=== PATIENT | male | born 1980 | race Caucasian/White ===

== ENCOUNTER 2017-02-23 16:22 | Emergency (ER) | payer SELFPAY ==
[2017-02-23] MEDS ORDERED: TORADOL 30 MG VIAL ONE (16:26)
[2017-02-23] MEDS ORDERED: ZOFRAN INJ 4 MG VIAL ONE (16:26)
[2017-02-23] MEDS ORDERED: TORADOL 30 MG VIAL IVP ONE (16:33)
[2017-02-23] MEDS ORDERED: ZOFRAN INJ 4 MG VIAL IVP ONE (16:33)
[2017-02-23 16:39] VITALS: BP 162/83; BMI 24.6
[2017-02-23] MEDS ORDERED: NORFLEX INJ IM ONE (16:40)
[2017-02-23] MEDS ORDERED: NORFLEX INJ ONE (16:40)
[2017-02-23] MEDS ORDERED: NS 1000 ML 1,000 ML ONE (17:15)
--- NOTE | 2017-02-23 17:28 | DR.GENAD ---
HPI - PCP Primary Care Physician: AMY - HPI Comment HPI Comment: Pt arrives via ambulance with right flank which radiates into his right scrotum. He has a h/o kidney stones and reports gross hematuria ~ 2 days ago. He denies fever and chills. - Complaint/Symptoms Chief Complaint Doctors Comments: "R side pain" Chief Complaint:: PT C/O PAIN TO HIS RIGHT FLANK PAIN THAT RADIATES TO HIS RIGHT GROIN.. - Nurses notes reviewed Nurses Notes Review: Yes - Source History Provided: Patient - Mode of Arrival Mode of Arrival: EMS - Timing Onset of Chief Complaint: 02/23/17 Came on: Suddenly - Duration Duration: Since Onset PMH - PMH Past Medical History: Yes Past Medical History Comment: RENAL STONES Past Surgical History: No - Family History History of Family Medical Conditions: Yes Family Medical History: Diabetes Mellitus, Cancer, Coronary Artery Disease, Hypertension - Social History Does patient currently use any type of tobacco product: Yes Have you used tobacco products in the last 12 months: Yes Type of Tobacco Use: Cigarettes Does any household member use tobacco: No Alcohol Use: None Do you use any recreational Drugs:: No Lives With: Family Lives Where: Home - infectious screening In the last 2 months have you had wt loss of >10#?: NO Have you had fever, night sweats or hemotysis?: No Have you traveled outside the country in the last 6 months?: No Isolation: Standard ROS - Review of Systems Constitutional: No Symptoms Reported Respiratoy: No Symptoms Reported Cardiovascular: No Symptoms Reported Gastrointestinal/Abdominal: No Symptoms Reported Genitourinary: No Symptoms Reported Neurological: No Symptoms Reported Musculoskeletal: See HPI, Back Pain, Right, Back Integumentary: No Symptoms Reported Hematologic/Lymphatic: No Symptoms Reported Endocrine: No Symptoms Reported Psychiatric: No Symptoms Reported All Other Systems: Reviewed and Negative PE - Vital Signs Vitals: Pulse Rate 92 Respiratory Rate 22 Blood Pressure 162/83 O2 Sat by Pulse Oximetry 96 - General Limitations: No Limitations General Appearance: Alert, Anxious, In Distress - Head Head Exam: Normal Inspection - Eyes Eye exam: Normal Appearance - Neck Neck Exam: Normal Inspection - Chest Chest Inspection: Normal Inspection, Symmetric Chest Wall Rise - Respiratory Respiratory Exam: Normal Lung Sounds Bilat Respiratory Exam: Bilateral Clear to Auscultation - Cardiovascular Cardiovascular Exam: Regular Rate, Normal Rhythm, Normal Heart Sounds - Abdominal Exam Abdominal Exam: Normal Inspection, Normal Bowel Sounds, Soft - Back Back Exam: (R) CVA Tenderness - Neurologic Neurological Exam: Alert, Oriented X3, CN II-XII Intact - Psychiatric Psychiatric Exam: Agitated, Anxious - Skin Skin Exam: Warm, Dry, Intact, Normal Color MDM - Differential Diagnosis Differential Diagnosis: kidney stones, UTi, epididymitis Course - Reevaluation 1st: Improved (4/10 pain after toradol and norflex) ROR - Labs Reviewed Laboratory Results Reviewed?: Yes Laboratory: Specimen Type Clean catch urine 02/23/17 18:09 Urine Color Yellow (YELLOW) 02/23/17 18:09 Urine Appearance Slightly hazy (CLEAR) 02/23/17 18:09 Urine pH 6.0 (5.0 - 8.0) 02/23/17 18:09 Ur Specific [place] 1.015 (1.000-1.030) 02/23/17 18:09 Urine Protein 1+ (NEGATIVE) 02/23/17 18:09 Urine Glucose (UA) Negative (NEGATIVE) 02/23/17 18:09 Urine Ketones Negative (NEGATIVE) 02/23/17 18:09 Urine Occult Blood 5+ (NEGATIVE) 02/23/17 18:09 Urine Nitrite Negative (NEGATIVE) 02/23/17 18:09 Urine Bilirubin Negative (NEGATIVE) 02/23/17 18:09 Urine Urobilinogen Normal (NORMAL) 02/23/17 18:09 Ur Leukocyte Esterase Negative (NEGATIVE) 02/23/17 18:09 Urine RBC 40-50 /HPF (NEGATIVE) 02/23/17 18:09 Urine WBC 0-3 /HPF (NEGATIVE) 02/23/17 18:09 Ur Squamous Epith Cells Rare /HPF (NEGATIVE) 02/23/17 18:09 Urine Bacteria Negative /HPF (NEGATIVE) 02/23/17 18:09 Ur Culture Indicated? No/not indicated 02/23/17 18:09 - Diagnosis Discharge Problem: Flank pain, acute, Nephrolithiasis - Discharge Plan Condition: Stable - Follow ups/Referrals Follow ups/Referrals: NFD,None [Primary Care Provider] - 3 days - Instructions
[2017-02-23] MEDS ORDERED: NS 1000 ML 1,000 ML IV ONE (17:29)
--- NOTE | 2017-02-23 17:53 | RAD ---
HISTORY: Possible kidney stone. Right-sided back pain all the way down back to testicles. Study: Abdomen two views Comparison: CT abdomen and pelvis dated January 28, 2012 Findings: Evaluation of the abdomen demonstrates a normal bowel gas pattern. No pathological soft tissue mass is observed. Multiple calcifications project over the right kidney. There is at least 1 calcificati on identified along the expected course of the proximal right ureter. The bony structures are gross ly intact. IMPRESSION: 1. Calcifications projecting over the right kidney in over the expected course of the proximal righ t ureter. 2. A CT examination of the abdomen and pelvis, renal stone search is recommended further evaluation . Reported By:
[2017-02-23 18:19] LABS: BILIRUBIN,URINE NEGATIVE (NEGATIVE); BLOOD/HEMOGLOBIN,URINE 5+ (NEGATIVE); GLUCOSE, URINE NEGATIVE (NEGATIVE); KETONES,URINE NEGATIVE (NEGATIVE); LEUKOCYTE ESTERASE ,URINE NEGATIVE (NEGATIVE); NITRITES,URINE NEGATIVE (NEGATIVE); PROTEIN,URINE 1+ (NEGATIVE); UROBILINOGEN,URINE NORMAL (NORMAL)
[2017-02-23] MEDS ORDERED: MORPHINE SULFATE INJ 4 MG IVP ONE (18:19)
[2017-02-23] MEDS ORDERED: PHENERGAN INJ 25 MG IVP ONE (18:20)
[2017-02-23] MEDS ORDERED: MORPHINE SULFATE INJ 2 MG ONE (18:21)
[2017-02-23] MEDS ORDERED: PHENERGAN INJ 25 MG ONE (18:21)
[2017-02-23 18:35] LABS: APPEARANCE,URINE SLIGHTLY HAZY (CLEAR); BACTERIA,URINE NEGATIVE /HPF (NEGATIVE); COLOR,URINE YELLOW (YELLOW); RBC,URINE 40-50 /HPF (NEGATIVE); SQUAMOUS EPITHELIAL CELL,UR RARE /HPF (NEGATIVE)
--- NOTE | 2017-02-23 19:47 | CT ---
CT ABDOMEN AND PELVIS WITHOUT CONTRAST CLINICAL HISTORY: 36-year-old male with right-sided back pain and calcifications overlying the renal shadow on KUB. COMPARISON: CT abdomen and pelvis January 28, 2012. TECHNIQUE: Multiple contiguous computed tomographic axial images of the abdomen and pelvis were obta ined without the use of oral or intravenous contrast. Images were reformatted in the coronal and sag ittal planes. FINDINGS: The lung bases demonstrate no evidence of focal air-space opacification, pleural effusion, pneumotho rax, or suspicious pulmonary nodules. The imaged inferior mediastinum and heart are normal in appea berenice without evidence of pericardial effusion. The liver, gallbladder, pancreas, and spleen are within normal limits for noncontrast imaging. The adrenal glands are normal for study without contrast. Innumerable right renal pelvic stones that are nonobstructing measuring up to 5 mm with a proximal r ight partially obstructing renal stone measuring 3 mm with mild right-sided hydroureteronephrosis wi thout perinephric fluid or significant stranding. No left-sided nephroureterolithiasis or hydroureteronephrosis. Ureters run a no otherwise normal cou rse to a well distended urinary bladder without intracystic stone. The prostate, seminal vesicles, and external genitalia are within normal limits. The appendix is normal in appearance. The bowel is without obstruction or inflammation and there is no free fluid or free air within the peritoneal cavity. There are no pathologically enlarged lymph nodes in the abdomen or pelvis. The arteriovascular structures are within normal limits for a study without contrast. Soft tissues are normal. The osseous structures are intact without fracture or malalignment. IMPRESSION: 1. Multiple right renal pelvic stones that are nonobstructing measuring up to 5 mm with a proximal p artially obstructing 3 mm right ureteral stone and subsequent mild right hydroureteronephrosis. 2. No left-sided nephroureterolithiasis or hydroureteronephrosis. Reported By:
== END 2017-02-23 20:50 | disposition left against medical advice (07) ==
LOC: ER 16:25
DX: N20.0 Calculus of kidney (principal); R10.84 Generalized abdominal pain
CPT/HCPCS: 74000; 74176; 81001; 96365; 96372; 96374; 96375; 99282; 99283; J1885; J2270; J2360; J2405; J2550

== ENCOUNTER 2017-11-24 19:22 | Emergency (ER) | payer SELFPAY ==
[2017-11-24 19:34] VITALS: BP 159/107; BMI 24.3
[2017-11-24] MEDS ORDERED: MORPHINE SULFATE INJ 2 MG INJ IVP ONE (19:54)
--- NOTE | 2017-11-24 19:59 | DR.EXTPAIN ---
HPI - Time seen Time seen: 19:50 - PCP Primary Care Physician: NFD - Complaint/Symptoms Chief Complaint Doctor Comments: He was bitten by his neighbors dog. this was an unprovoked attack. Bites were to his right 3rd + 2nd fingers, right calf and medical left thigh. Chief Complaint:: WAS AT HOME AND DOG BIT HIM - Nurses notes reviewed Nurses Notes Review: Yes - Source History Provided: Patient - Mode of arrival Mode of Arrival: EMS - Timing Onset of Chief Complaint: 11/24/17 PMH - PMH Past Medical History: No Past Surgical History: No - Family History History of Family Medical Conditions: Yes Family Medical History: Diabetes Mellitus, Cancer, Coronary Artery Disease, Hypertension - Social History Does patient currently use any type of tobacco product: Yes Have you used tobacco products in the last 12 months: Yes Type of Tobacco Use: Cigarettes Does any household member use tobacco: Yes Alcohol Use: Occasionally Do you use any recreational Drugs:: Yes (THC) Lives With: Family Lives Where: Home - infectious screening In the last 2 months have you had wt loss of >10#?: NO Have you had fever, night sweats or hemotysis?: No Have you traveled outside the country in the last 6 months?: No Isolation: Standard ROS - Review of Systems Constitutional: No Symptoms Reported Eyes: No Symptoms Reported ENTM: No Symptoms Reported Respiratoy: No Symptoms Reported Cardiovascular: No Symptoms Reported Gastrointestinal/Abdominal: No Symptoms Reported Genitourinary: No Symptoms Reported Neurological: No Symptoms Reported Musculoskeletal: Leg (rt., pain), Other (lt. thigh pain and rt. fingers x 2) Integumentary: Other (bites dimas as described in HPI) Hematologic/Lymphatic: No Symptoms Reported Endocrine: No Symptoms Reported Psychiatric: No Symptoms Reported PE - Vital Signs Vitals: Temperature 98.0 F Pulse Rate 109 Respiratory Rate 22 Blood Pressure 159/107 O2 Sat by Pulse Oximetry 98 - General Limitations: No Limitations General Appearance: Alert - Head Head Exam: Normal Inspection, Atraumatic - Eyes Eye exam: Normal Appearance - ENT ENT Exam: Normal Exam - Neck Neck Exam: Normal Inspection - Chest Chest Inspection: Normal Inspection - Respiratory Respiratory Exam: Normal Lung Sounds Bilat - Cardiovascular Cardiovascular Exam: Regular Rate, Normal Rhythm, Normal Heart Sounds, +S1, +S2 - Abdominal Exam Abdominal Exam: Normal Inspection, Normal Bowel Sounds, Soft - Upper Extremities Shoulder Exam: Normal Inspection Arm Exam: Normal Inspection Elbow Exam: Normal Inspection Forearm Exam: Normal Inspection Hand Exam: Other (puncture wound(s) on rt. 2nd and 3rd digits.) Neuromotor Exam: Normal Exam Neurosensory Exam: Normal Exam - Lower Extremities Hip/Pelvis Exam: Normal Inspection Upper Leg Exam: Other (medial lt. thigh with a U shaped row of puncture wounds) Knee Exam: Normal Inspection, Full ROM Lower Leg Exam: Other (puncture wounds on posterior right calf) Ankle Exam: Normal Inspection Foot/Toe Exam: Normal Inspection Neurovascular/Tendon Exam: Normal Capillary Refill - Back Back Exam: Normal Inspection - Neurological Neurological Exam: Alert, Oriented X3, CN II-XII Intact - Psychiatric Psychiatric Exam: Normal Affect, Normal Mood - Skin Skin Exam: Other (as described in exts.) - Diagnosis Discharge Problem: Bite from dog - Discharge Plan Disposition: 01 HOME, SELF-CARE Condition: Stable - Follow ups/Referrals Follow ups/Referrals: NFD,None [Primary Care Provider] - 3 days - Instructions
[2017-11-24] MEDS ORDERED: AUGMENTIN 875 MG/125 MG TAB PO SCH (20:00)
[2017-11-24] MEDS ORDERED: MORPHINE SULFATE INJ 2 MG INJ ONE (20:12)
[2017-11-24] MEDS ORDERED: AUGMENTIN 500 MG/125 MG TAB PO ONE ×2 (20:28→20:53)
== END 2017-11-24 21:15 | disposition home or self-care (01) ==
LOC: ER 19:26
DX: S61.451A Open bite of right hand, initial encounter (principal); S81.852A Open bite, left lower leg, initial encounter; S71.152A Open bite, left thigh, initial encounter; W54.0XXA Bitten by dog, initial encounter; Y92.009 Unspecified place in unspecified non-institutional (private) residence as the place of occurrence of the external cause
CPT/HCPCS: 99281; 99282; J2270

== ENCOUNTER 2017-11-28 16:05 | Emergency (ER) | payer OTHER ==
[2017-11-28 16:21] VITALS: BP 168/98; BMI 26.6
[2017-11-28] MEDS ORDERED: ADACEL TDaP IM ONE ×2 (16:22→16:24)
[2017-11-28] MEDS ORDERED: XYLOCAINE 1 % (PLAIN) ONE (16:49)
--- NOTE | 2017-11-28 18:20 | DR.LACERAT ---
HPI - Time Seen Time seen: 16:25 - Primary Care Physician Primary Care Physician: NFD - Complaints Chief Complaint Doctors Comments: CUT LEFT THIGH WITH RAZOR BLADE IN SENIOR LIVING. PATIENT DID THIS INTENSIONALLY. NO HISTORY OF SUICIDE ATTEMPT. NO HISTORY OF MENTAL ILLNESS IN PATIENT. FAMILY HISTORY OF PARANIO DEPRESSION IN FATHER. Chief Complaint:: PT C/O LACERATION TO LT THIGH. PT STATES HE HAS BEEN IN RETIREMENT SINCE MONDAY AND HE HAS BEEN GOING CRAZY HE HAS BEEN IN THE HOLE. PT STATES HIS FATHER IS A PARANOID SCHIZOPHRENIC AND HE IS SCARED HE IS TURNING INTO HIS FATHER. HE NEEDS SOMEONE TO TALK TO - Reviewed Nurses Notes Reviewed: Yes - Source History Provided: Patient - Mode of Arrival Mode of Arrival: Ambulatory - Timing Onset of Chief Complaint: 11/28/17 - Context Mechanism: Metal (CUT LEFT THIGH WIT RAZOR BLADE.) Tetanus Vaccination: Yes - Severity Pain Severity: None Bleeding:: Controlled PMH - PMH Past Medical History: Yes Past Medical History: Kidney Stones Past Surgical History: No - Family History History of Family Medical Conditions: Yes Family Medical History: Diabetes Mellitus, Cancer, Coronary Artery Disease, Hypertension - Social History Does patient currently use any type of tobacco product: Yes Have you used tobacco products in the last 12 months: Yes Type of Tobacco Use: Cigarettes Does any household member use tobacco: Yes Alcohol Use: None Do you use any recreational Drugs:: Yes (THC) Lives With: Family Lives Where: Home - infectious screening In the last 2 months have you had wt loss of >10#?: NO Have you had fever, night sweats or hemotysis?: No Have you traveled outside the country in the last 6 months?: No Isolation: Standard ROS - Review of Systems Constitutional: No Symptoms Reported Eyes: No Symptoms Reported ENTM: No Symptoms Reported Respiratoy: No Symptoms Reported Cardiovascular: No Symptoms Reported Gastrointestinal/Abdominal: No Symptoms Reported Genitourinary: No Symptoms Reported Neurological: No Symptoms Reported Musculoskeletal: No Symptoms Reported Integumentary: Wound (CUT LEFT THIGH, 3CM LACERATION PRESENT.) Hematologic/Lymphatic: No Symptoms Reported Endocrine: No Symptoms Reported Psychiatric: No Symptoms Reported, Suicidal (INTENSIONALY CUT HIMSELF.) All Other Systems: Reviewed and Negative PE - Vital Signs Vitals: Temperature 99.2 F Pulse Rate 93 Respiratory Rate 18 Blood Pressure 168/98 O2 Sat by Pulse Oximetry 96 - General Limitations: No Limitations General Appearance: Alert - Head Head Exam: Normal Inspection - Eyes Eye exam: Normal Appearance - ENT ENT Exam: Normal External Ear Exam - Neck Neck Exam: Normal Inspection - Chest Chest Inspection: Symmetric Chest Wall Rise - Respiratory Respiratory Exam: Normal Lung Sounds Bilat - Cardiovascular Cardiovascular Exam: Regular Rate, Normal Rhythm, Normal Heart Sounds - Abdominal Exam Abdominal Exam: Normal Bowel Sounds, Soft. negative: Tenderness - Extremities Extremities Exam: Other (3CM LAC UPPER THIGH.) - Neurologic Neurological Exam: Alert, Oriented X3 - Psychiatric Psychiatric Exam: Other (SUICIDAL. CUT HIMSELF INTENSIONALLY.) - Skin Skin Exam: Erythema, Other (3CM LAC LT THIGH.) MDM - Differential Diagnosis Differential Diagnosis: Laceration (LT THIGH.) Course - Treatment Treatment: SEE ORDERS. - Education/Counseling Education/Counseling: Patient, Education Educated On: Diagnosis, Needs for Follow Up, Other (GRAPHICS COORDINATOR WITH PATIENT DURING DISCUSION.) Procedures - Laceration/Wound Repair Left Thigh Wound Length (cm): 3 Wound's Depth, Shape: Linear Wound Explored: clean Anesthesia: 1% Lidocaine Volume Anesthetic (ccs): 2 Wound Debrided: minimal Wound Repaired With: sutures Suture Size/Type: 4:0, [place] Number of Sutures: 8 Sterile Dressing Applied?: Yes Splint Applied?: No Sling Applied?: No - Diagnosis Discharge Problem: Laceration of left thigh, Self-inflicted injury, Suicide risk - Discharge Plan Disposition: 01 HOME, SELF-CARE Condition: Stable - Follow ups/Referrals Follow ups/Referrals: NFD,None [Primary Care Provider] - 3 days - Instructions Instructions: Helping Someone Who is Suicidal, Laceration Care, Adult, Easy-to- Read Additional Instructions: SUICIDE PRECAUTIONS. RETURN TO ED IF WORSE.PATIENT TO SEE PSYCH. DR. MCNAMARA. SUTURE OUT IN 10 DAYS.
== END 2017-11-28 18:34 | disposition home or self-care (01) ==
LOC: ER 16:10
PROC: 0YQ9XZZ Repair Right Lower Extremity, External Approach (ICD-10-PCS; principal; 2017-11-28)
DX: S71.112A Laceration without foreign body, left thigh, initial encounter (principal); R45.851 Suicidal ideations; X78.9XXA Intentional self-harm by unspecified sharp object, initial encounter; W26.8XXA Contact with other sharp object(s), not elsewhere classified, initial encounter; Y92.149 Unspecified place in prison as the place of occurrence of the external cause
CPT/HCPCS: 12002; 90471; 99282; J2001

== ENCOUNTER 2019-02-03 10:22 | Observation (INO) ==
[2019-02-03] MEDS ORDERED: TORADOL 30 MG VIAL IVP ONE (10:25)
[2019-02-03] MEDS ORDERED: ROCEPHIN VIAL 2 GRAMS IVP ONE (10:25)
[2019-02-03] MEDS ORDERED: BENADRYL INJ 50 MG VIAL IVP ONE (10:25)
[2019-02-03 10:29] VITALS: BMI 29.4
--- NOTE | 2019-02-03 10:29 | DR.EXTPAIN ---
HPI Time seen Time Seen by Provider: 02/03/19 10:25 Complaint/Symptoms Chief Complaint Doctor Comments: Pt reports 2 days ago having been stung by a wasp. He has left wrist/FA swelling with erythema and worsening pain. His pain 8/10 with movement. He has taken Benadryl for itching but swelling has been persistent and spreading. Denies any trauma or drainage. He reports some chills but no fever. Chief Complaint:: wasp bite left hand Nurses notes reviewed Nurses Notes Review: Yes Source History Provided: Patient Mode of arrival Mode of Arrival: Ambulatory Location Left Forearm: Description: Limited ROM, Pain, Red, Swelling and Warm Able to Bear Weight: N/A Able to Move Injured Body Part: Yes Pain Occurs: With Use Distal Function Deficit of Injured Body Part: Normal, Capillary Refill, Motor and Pulse Discharge/Drainage: None Timing Onset of Chief Complaint: 02/01/19 Associated signs and symptoms Associated Signs and Symptoms: Pain and Swelling PMH PMH Past Medical History: Kidney Stones; denies Diabetes and Hypertension Past Surgical History: No Family History Family Medical History: Diabetes Mellitus, Cancer, Coronary Artery Disease and Hypertension Social History Type of Tobacco Use: Cigarettes How many years tobacco product used: 1 Alcohol Use: None Do you use any recreational Drugs:: Yes (THC) Lives With: Spouse ROS Review of Systems Constitutional: Chills and Diaphoresis; negative Fever Eyes: No Symptoms Reported ENTM: No Symptoms Reported Respiratoy: No Symptoms Reported; negative Short of Breath Cardiovascular: No Symptoms Reported; negative Chest Pain and Palpitations Gastrointestinal/Abdominal: No Symptoms Reported; negative Abdominal Pain, Nausea and Vomiting Genitourinary: No Symptoms Reported Neurological: No Symptoms Reported Musculoskeletal: No Symptoms Reported and Left (arm pain and swelling) Integumentary: No Symptoms Reported, Rash (left FA) and Itching (Left FA); negative Wound Hematologic/Lymphatic: No Symptoms Reported Endocrine: No Symptoms Reported Psychiatric: No Symptoms Reported All Other Systems: Reviewed and Negative PE Vital Signs Vitals: Temperature 97.8 F Pulse Rate 74 Respiratory Rate 16 Blood Pressure 140/88 O2 Sat by Pulse Oximetry 100 General Limitations: No Limitations General Appearance: Alert and In No Apparent Distress Head Head Exam: Normal Inspection and Atraumatic Eyes Eye exam: Normal Appearance, PERRL and EOMI ENT ENT Exam: Normal Oropharynx and Mucous Membranes Moist Neck Neck Exam: Normal Inspection and Full ROM Respiratory Respiratory Exam: Normal Lung Sounds Bilat Cardiovascular Cardiovascular Exam: Regular Rate and Normal Heart Sounds Abdominal Exam Abdominal Exam: Soft Extremities Extremities Exam: Tenderness (left FA) and Edema Upper Extremities Forearm Exam: Tenderness, Swelling (left) and Erythema; negative Full ROM and Crepitus Hand Exam: Tenderness, Swelling and Erythema Neuromotor Exam: Normal Exam Neurosensory Exam: Normal Exam Upper Ext. Vascular Exam: Capillary Refill and Radial Pulse Neurological Neurological Exam: Alert, Oriented X3 and Reflexes Normal Psychiatric Psychiatric Exam: Normal Affect Skin Skin Exam: Erythema (left hand/wrist/FA with marked swelling to elbow) Type of Lesion: Bite/Sting (small left dorsal hand) MDM Differential Diagnosis Differential Diagnosis: Other (Cellulitis/septic arthritis/insect bite) COURSE Reevaluation 1st: Improved (pain 7/10 still improved with toradol. Still marked swelling and pain with movement. WBC 6k CRP 6.30 high) 2nd: Improved (pain improved to 4/[address] stern and will admit) Consultation Called: 12:11 Call Returned: 12:11 Consultation Comments: Spoke to Dr. Stern and will admit. Will start on Vancomycin Education/Counseling Education/Counseling: Patient Educated On: Treatment and Diagnosis ROR Labs Reviewed Laboratory Results Reviewed?: Yes Result Diagrams: 02/03/19 10:33 02/03/19 10:33 Laboratory: WBC 6.6 X10^3/uL (3.6-10.0) 02/03/19 10:33 RBC 4.49 X10^6/uL (4.7-6.0) L 02/03/19 10:33 Hgb 14.9 g/dL (13.5-18.0) 02/03/19 10:33 Hct 42.0 % (42.0-54.0) 02/03/19 10:33 MCV 93.6 fL (80.0-100.0) 02/03/19 10:33 MCH 33.3 pg (27.0-34.0) 02/03/19 10:33 MCHC 35.6 g/dL (33.0-35.0) H 02/03/19 10:33 RDW 12.7 % (11.6-16.5) 02/03/19 10:33 Plt Count 289 X10^3/uL (150.0-450.0) 02/03/19 10:33 MPV 6.6 fL (7.4-11.0) L 02/03/19 10:33 Neut % (Auto) 57.7 % (42.0-75.0) 02/03/19 10:33 Lymph % (Auto) 27.5 % (21.0-51.0) 02/03/19 10:33 [place] % (Auto) 8.0 % (0.0-13.0) 02/03/19 10:33 Eos % (Auto) 6.4 % (0.9-2.9) H 02/03/19 10:33 Baso % (Auto) 0.4 % (0.2-1.0) 02/03/19 10:33 Neut # (Auto) 3.8 x10^3/uL (2.2-4.8) 02/03/19 10:33 Lymph # (Auto) 1.8 X10^3/uL (1.3-2.9) 02/03/19 10:33 [place] # (Auto) 0.5 x10^3/uL (0.3-0.8) 02/03/19 10:33 Eos # (Auto) 0.4 x10^3/uL (0.0-0.2) H 02/03/19 10:33 Baso # (Auto) 0.0 X10^3/uL (0.0-0.1) 02/03/19 10:33 Absolute Nucleated RBC 0.0 /100WBC 02/03/19 10:33 Sodium 141 mmol/L (136-145) 02/03/19 10:33 Corrected Sodium TNP 02/03/19 10:33 Potassium 4.2 mmol/L (3.5-5.1) 02/03/19 10:33 Chloride 106 mmol/L (98-107) 02/03/19 10:33 Carbon Dioxide 25.7 mmol/L (21-32) 02/03/19 10:33 BUN 17 mg/dL (7-18) 02/03/19 10:33 Creatinine 0.88 mg/dL (0.70-1.30) 02/03/19 10:33 Est GFR (MDRD) Af Amer > 60 (>60) 02/03/19 10:33 Est GFR (MDRD) Non-Af > 60 (>60) 02/03/19 10:33 Glucose 103 mg/dL (65-99) H 02/03/19 10:33 Calcium 8.0 mg/dL (8.5-10.1) L 02/03/19 10:33 C-Reactive Protein 6.30 mg/L (0-3.0) H 02/03/19 10:33 XRAY XRAY Interpreted by: Radiologist XRAY Findings: agree, no FB or gas, soft tissue swelling Opioid Opioid Risk Tool Total: 0 Total Score Risk Category: Low Risk Copyright: John ZELAYA predicting aberrant behaviors
[2019-02-03 10:50] LABS: BASOPHILS % (AUTO) 0.4 % (0.2-1.0); EOSINOPHILS # (AUTO) 0.4 x10^3/uL (0.0-0.2); EOSINOPHILS % (AUTO) 6.4 % (0.9-2.9); HEMOGLOBIN 14.9 g/dL (13.5-18.0); LYMPHOCYTES # (AUTO) 1.8 X10^3/uL (1.3-2.9); LYMPHOCYTES % (AUTO) 27.5 % (21.0-51.0); MEAN CORPUSCULAR HEMOGLOBIN 33.3 pg (27.0-34.0); MEAN CORPUSCULAR HGB CONC 35.6 g/dL (33.0-35.0); MEAN CORPUSCULAR VOLUME 93.6 fL (80.0-100.0); MEAN PLATELET VOLUME 6.6 fL (7.4-11.0); MONOCYTES # (AUTO) 0.5 x10^3/uL (0.3-0.8); NEUTROPHILS # (AUTO) 3.8 x10^3/uL (2.2-4.8); NEUTROPHILS % (AUTO) 57.7 % (42.0-75.0); PLATELET COUNT 289 X10^3/uL (150.0-450.0); RED BLOOD COUNT 4.49 X10^6/uL (4.7-6.0); RED CELL DISTRIBUTION WIDTH 12.7 % (11.6-16.5); WHITE BLOOD COUNT 6.6 X10^3/uL (3.6-10.0)
[2019-02-03 10:52] LABS: BLOOD UREA NITROGEN 17 mg/dL (7-18); CARBON DIOXIDE 25.7 mmol/L (21-32); CHLORIDE 106 mmol/L (98-107); CREATININE 0.88 mg/dL (0.70-1.30); SODIUM 141 mmol/L (136-145); eGFR NON BLACK RACES > 60 (>60)
[2019-02-03] MEDS ORDERED: MORPHINE SULFATE INJ 2 MG INJ IVP ONE (11:37)
[2019-02-03] MEDS ORDERED: VANCOMYCIN HCL 1 GM VIAL 1 G in D5W 250 ML IV 250 ML IV SCH (13:00)
[2019-02-03] MEDS ORDERED: LR 1000 ML IV 1,000 ML ONE (15:20)
[2019-02-03] MEDS ORDERED: NICOTINE PATCH ONE (15:21)
[2019-02-03] MEDS: NICOTINE PATCH TD SCH (15:29)
[2019-02-03] MEDS: LR 1000 ML IV 1,000 ML IV SCH ×2 (15:29→15:30)
[2019-02-03] MEDS ORDERED: TORADOL 30 MG VIAL ONE (17:23)
[2019-02-03] MEDS: TORADOL 30 MG VIAL IVP PRN ×2 (17:24→22:42)
[2019-02-03] MEDS ORDERED: BENADRYL CAP/TAB 25 MG PO PRN (22:08)
[2019-02-03] MEDS: VANCOMYCIN HCL 1 GM VIAL 1 G in D5W 250 ML IV 250 ML IV SCH (22:50)
[2019-02-04 05:18] LABS: BASOPHILS % (AUTO) 0.5 % (0.2-1.0); EOSINOPHILS # (AUTO) 0.4 x10^3/uL (0.0-0.2); EOSINOPHILS % (AUTO) 6.6 % (0.9-2.9); HEMATOCRIT 41.4 % (42.0-54.0); HEMOGLOBIN 14.5 g/dL (13.5-18.0); LYMPHOCYTES # (AUTO) 2.2 X10^3/uL (1.3-2.9); LYMPHOCYTES % (AUTO) 34.6 % (21.0-51.0); MEAN CORPUSCULAR HEMOGLOBIN 33.2 pg (27.0-34.0); MEAN CORPUSCULAR VOLUME 94.8 fL (80.0-100.0); MEAN PLATELET VOLUME 7.4 fL (7.4-11.0); MONOCYTES # (AUTO) 0.5 x10^3/uL (0.3-0.8); MONOCYTES % (AUTO) 7.2 % (0.0-13.0); NEUTROPHILS # (AUTO) 3.2 x10^3/uL (2.2-4.8); NEUTROPHILS % (AUTO) 51.1 % (42.0-75.0); PLATELET COUNT 264 X10^3/uL (150.0-450.0); RED BLOOD COUNT 4.37 X10^6/uL (4.7-6.0); RED CELL DISTRIBUTION WIDTH 13.1 % (11.6-16.5); WHITE BLOOD COUNT 6.3 X10^3/uL (3.6-10.0)
[2019-02-04] MEDS: LR 1000 ML IV 1,000 ML IV SCH (06:05)
[2019-02-04] MEDS: VANCOMYCIN HCL 1 GM VIAL 1 G in D5W 250 ML IV 250 ML IV SCH (06:10)
[2019-02-04] MEDS: NICOTINE PATCH TD SCH (10:26)
[2019-02-04 12:27] VITALS: BP 123/61
[2019-02-04] MEDS ORDERED: PHARMACY COMMENT IV SCH (13:45)
== END 2019-02-04 11:45 | disposition home or self-care (01) ==
LOC: MED/SURG 10:22 → ER 10:22 → MED/SURG 13:24
PROVIDERS: ADMIT Obstetrics & Gynecology Obstetrics; ATTEND Obstetrics & Gynecology Obstetrics
DX: L03.114 Cellulitis of left upper limb; W57.XXXA Bitten or stung by nonvenomous insect and other nonvenomous arthropods, initial encounter
CPT/HCPCS: 36415; 73090; 73100; 80048; 85025; 86140; 87040; 96367; 96374; 96375; 99284; A4222; G0378; J1885; J3370; J7060; J7120